=== PATIENT | female | born 1990 | race American Indian/Alaskan Native ===

== ENCOUNTER 2019-04-28 02:33 | Emergency (ER) | payer SELFPAY ==
[2019-04-28] MEDS ORDERED: levETIRAcetam 500 MG TAB PO ONE (02:45)
--- NOTE | 2019-04-28 03:07 | Emergency Department Report ---
ED General Adult HPI - General Chief complaint: Seizure Stated complaint: Seizure Time Seen by Provider: 04/28/19 02:46 Source: EMS Mode of arrival: Stretcher Limitations: No Limitations - History of Present Illness Initial comments: 28 y.o. female with past medical history of seizures presents with a complaint that patient had a seizure tonight. Patient has had urinary incontinence. Patient was biting the tongue. Patient states that she hit her head. Patient's family member stated seizure lasted 6 minutes but according to EMS patient had a postictal period that was very brief and patient was oriented to person place and time upon their arrival. Patient is a last seizure was 2 weeks ago. Patient that she has been noncompliant with her Keppra as well as her Depakote therapy. Severity scale (0 -10): 0 - Related Data Previous Rx's Medication Instructions Recorded Last Taken Type levETIRAcetam [Keppra] 750 mg PO BID #60 udc 04/28/19 Unknown Rx Allergies Allergy/AdvReac Type Severity Reaction Status Date / Time NSAIDS (Non-Steroidal Allergy Unknown Verified 04/28/19 02:44 Anti-Inflamma ED Review of Systems ROS: Stated complaint: Seizure Other details as noted in HPI Constitutional: denies: chills, fever Eyes: denies: eye pain, eye discharge, vision change ENT: denies: ear pain, throat pain Respiratory: denies: cough, shortness of breath, wheezing Cardiovascular: denies: chest pain, palpitations Endocrine: no symptoms reported Gastrointestinal: denies: abdominal pain, nausea, diarrhea Genitourinary: denies: urgency, dysuria, discharge Musculoskeletal: denies: back pain, joint swelling, arthralgia Skin: denies: rash, lesions Neurological: other (seizure) Psychiatric: denies: anxiety, depression Hematological/Lymphatic: denies: easy bleeding, easy bruising ED Past Medical Hx - Medications Home Medications: Home Medications Medication Instructions Recorded Confirmed Last Taken Type levETIRAcetam [Keppra] 750 mg PO BID #60 udc 04/28/19 Unknown Rx ED Physical Exam - General Limitations: No Limitations General appearance: alert, in no apparent distress, other - Head Head exam: Present: normocephalic, other (Small contusion noted in the left frontal region. No evidence of scalp laceration or hematoma.) - Eye Eye exam: Present: normal appearance - ENT ENT exam: Present: mucous membranes moist - Neck Neck exam: Present: normal inspection - Respiratory Respiratory exam: Present: normal lung sounds bilaterally. Absent: respiratory distress - Cardiovascular Cardiovascular Exam: Present: regular rate, normal rhythm. Absent: systolic murmur, diastolic murmur, rubs, gallop - GI/Abdominal GI/Abdominal exam: Present: soft, normal bowel sounds - Extremities Exam Extremities exam: Present: normal inspection - Back Exam Back exam: Present: normal inspection - Neurological Exam Neurological exam: Present: alert, oriented X3 - Psychiatric Psychiatric exam: Present: normal affect, normal mood - Skin Skin exam: Present: warm, dry, intact, normal color. Absent: rash ED Course Vital Signs 04/28/19 02:42 Pulse Rate 90 Respiratory 16 Rate Blood Pressure 151/93 [Right] O2 Sat by Pulse 97 Oximetry ED Medical Decision Making - Lab Data Result diagrams: 04/28/19 03:36 04/28/19 03:36 - Medical Decision Making Patient has had no subsequent seizures while here in emergency department. CT shows no acute pathology. Patient to be given Keppra on outpatient basis and be discharged. - Differential Diagnosis Seizure; Dehydration; Electrolyte Abnormality; Anemia Critical care attestation.: If time is entered above; I have spent that time in minutes in the direct care of this critically ill patient, excluding procedure time. ED Disposition Clinical Impression: Seizure Disposition: DC-01 TO HOME OR SELFCARE Is pt being admited?: No Does the pt Need Aspirin: No Condition: Stable Instructions: Epilepsy (ED) Prescriptions: levETIRAcetam [Keppra] 750 mg PO BID #60 c Time of Disposition: 05:14 Print Language: MONTENEGRIN
--- NOTE | 2019-04-28 03:36 | Cat Scan Report ---
CT head/brain wo con INDICATION: MAIN: seizures, fall, headache. TECHNIQUE: All CT scans at this location are performed using CT dose reduction for ALARA by means of automated e xposure control. COMPARISON: 04/20/2019 FINDINGS: Ventricles are symmetrical and normal in size. No mass, hemorrhage or other significant abnormality. IMPRESSION: 1. No acute abnormality and no interval change from 7 days ago. Signer Name: Jose Alejandro Castillo MD Signed: 04/28/2019 3:31 AM Workstation Name: [id number]
[2019-04-28 03:56] LABS: Basophils % (Auto) 0.4 % (0.0-1.8); Eosinophils # (Auto) 0.1 K/mm3 (0.0-0.4); Eosinophils % (Auto) 1.3 % (0.0-4.3); Hematocrit 35.6 % (30.3-42.9); Hemoglobin 11.5 gm/dl (10.1-14.3); Lymphocytes # (Auto) 1.9 K/mm3 (1.2-5.4); Lymphocytes % (Auto) 22.9 % (13.4-35.0); Mean Corpuscular HGB Conc 32 % (30-34); Mean Corpuscular Volume 87 fl (79-97); Monocytes # (Auto) 0.8 K/mm3 (0.0-0.8); Monocytes % (Auto) 9.9 % (0.0-7.3); Platelet Count 353 K/mm3 (140-440); Red Cell Distribution Width 18.4 % (13.2-15.2)
[2019-04-28 04:19] LABS: Alanine Aminotransferase 7 units/L (7-56); Albumin 3.9 g/dL (3.9-5); BUN/Creatinine Ratio 20; Blood Urea Nitrogen 12 mg/dL (7-17); Calcium 9.3 mg/dL (8.4-10.2); Hemolysis Index 76
[2019-04-28 05:19] VITALS: BP 102/47
== END 2019-04-28 05:56 | disposition home or self-care (01) ==
LOC: ED 02:33
DX: G40.909 Epilepsy, unspecified, not intractable, without status epilepticus (principal); Z79.899 Other long term (current) drug therapy; Z88.6 Allergy status to analgesic agent
CPT/HCPCS: 36415; 70450; 80053; 80320; 85025; G0480

== ENCOUNTER 2019-04-28 09:15 | Emergency (ER) | payer SELFPAY ==
--- NOTE | 2019-04-28 09:57 | Emergency Department Report ---
ED Psych HPI - General Chief Complaint: Medical Clearance Stated Complaint: MH Time Seen by Provider: 04/28/19 09:42 Source: patient Mode of arrival: Stretcher - History of Present Illness Initial Comments: This is a 28-year-old female that arrives with a variety of issues. Apparently she has some delusions related to the coronavirus which she expressed triage. She was brought in by [facility] from her residence at [place]. She admits to being noncompliant with her psychiatric medicine to include [place]. She states that she was recently admitted to [facility]. She states that she was sent to [place] from [facility]. She is expressing active suicidal ideat ion although has no specific plan. She states that she is a "cutter". She also states that she has taken an overdose in the past. She expresses a desire to be admitted to a psychiatric facility. Complaint: feels depressed, other (Delusional) -: week(s), unknown Associated Psychiatric Symptoms: depression History of same: Yes Quality: constant Improves With: none Worsens With: none Context: not taking psychiatric Associated Symptoms: denies other symptoms Treatments Prior to Arrival: none - Related Data Previous Rx's Medication Instructions Recorded Last Taken Type levETIRAcetam [Keppra] 750 mg PO BID #60 [facility] [place] 04/28/19 Unknown Rx Allergies Allergy/AdvReac Type Severity Reaction Status Date / Time NSAIDS (Non-Steroidal Allergy Unknown Verified 04/28/19 02:44 Anti-Inflamma ED Review of Systems ROS: Stated complaint: MH Other details as noted in HPI Constitutional: denies: chills, fever Eyes: denies: eye pain, eye discharge, vision change ENT: denies: ear pain, throat pain Respiratory: denies: cough, shortness of breath, wheezing Cardiovascular: denies: chest pain, palpitations Endocrine: no symptoms reported Gastrointestinal: denies: abdominal pain, nausea, diarrhea Genitourinary: denies: urgency, dysuria, discharge Musculoskeletal: denies: back pain, joint swelling, arthralgia Skin: denies: rash, lesions Neurological: denies: headache, weakness, paresthesias Psychiatric: as per HPI, anxiety, depression, other Hematological/Lymphatic: denies: easy bleeding, easy bruising ED Past Medical Hx - Past Medical History Hx Psychiatric Treatment: Yes - Social History Other Social History: Resides at [place]. - Medications Home Medications: Home Medications Medication Instructions Recorded Confirmed Last Taken Type levETIRAcetam [Keppra] 750 mg PO BID #60 [facility] [place] 04/28/19 Unknown Rx ED Physical Exam - General Limitations: No Limitations General appearance: alert, in no apparent distress - Head Head exam: Present: atraumatic, normocephalic - Eye Eye exam: Present: normal appearance. Absent: scleral icterus - ENT ENT exam: Present: mucous membranes moist - Neck Neck exam: Present: normal inspection - Respiratory Respiratory exam: Present: normal lung sounds bilaterally. Absent: respiratory distress - Cardiovascular Cardiovascular Exam: Present: regular rate, normal rhythm. Absent: systolic murmur, diastolic murmur, rubs, gallop - GI/Abdominal GI/Abdominal exam: Present: soft, normal bowel sounds. Absent: distended, tenderness, guarding, rebound - Extremities Exam Extremities exam: Present: normal inspection - Back Exam Back exam: Present: normal inspection - Neurological Exam Neurological exam: Present: alert, oriented X3, CN II-XII intact. Absent: motor sensory deficit - Psychiatric Psychiatric exam: Present: normal affect, depressed - Skin Skin exam: Present: warm, dry, intact, normal color. Absent: rash ED Course Vital Signs 04/28/19 10:58 Temperature 98.1 F Pulse Rate 82 Respiratory 18 Rate Blood Pressure 143/59 [Right] O2 Sat by Pulse 100 Oximetry - Reevaluation(s) Reevaluation #1: Patient displayed "head banging" behavior according to nursing staff. She did not injure herself. She was given Geodon. I have already instructed the nurse to get her medication reconciled so we can continue it. 1013 form has been executed. 04/28/19 11:57 ED Medical Decision Making - Lab Data Result diagrams: 04/28/19 09:58 Laboratory Results - last 24 hr 04/28/19 09:58 Sodium 143 Potassium 5.0 Chloride 106.8 Carbon Dioxide 20 L Anion Gap 21 BUN 12 Creatinine 0.5 L Estimated GFR > 60 BUN/Creatinine Ratio 24 Glucose 72 Calcium 9.9 Magnesium 2.50 H Total Bilirubin 0.20 ALT 10 Alkaline Phosphatase 63 Total Creatine Kinase 157 H CK-MB (CK-2) 1.8 CK-MB (CK-2) Rel Index 1.1 Total Protein 7.9 Albumin 4.5 Albumin/Globulin Ratio 1.3 Critical care attestation.: If time is entered above; I have spent that time in minutes in the direct care of this critically ill patient, excluding procedure time. ED Disposition Clinical Impression: Psychiatric disorder, Suicidal ideation Disposition: DC-01 TO HOME OR SELFCARE Is pt being admited?: No Does the pt Need Aspirin: No Condition: Stable Referrals: PRIMARY CARE, [Primary Care Provider] - 3-5 Days Time of Disposition: 12:09
[2019-04-28] MEDS: ZIPRASIDONE MESYLATE 20 MG VIAL IM ONE ×2 (11:57→12:57)
[2019-04-28 12:05] LABS: Creatine Kinase MB 1.8 ng/mL (0.0-4.0)
[2019-04-28 12:07] LABS: Alanine Aminotransferase 10 units/L (7-56); Albumin 4.5 g/dL (3.9-5); BUN/Creatinine Ratio 24; Blood Urea Nitrogen 12 mg/dL (7-17); Calcium 9.9 mg/dL (8.4-10.2); Hemolysis Index 83
[2019-04-28 12:15] LABS: Bilirubin,Direct < 0.2 mg/dL (0-0.2)
[2019-04-28 13:12] LABS: Amphetamine Screen,Urine PRESUMPTIVE NEGATIVE; Benzodiazepines Screen,Urine PRESUMPTIVE NEGATIVE; Cannabinoid Screen,Urine PRESUMPTIVE NEGATIVE; Cocaine Screen,Urine PRESUMPTIVE NEGATIVE; Methadone Screen,Urine PRESUMPTIVE NEGATIVE; Opiate Screen,Urine PRESUMPTIVE NEGATIVE
[2019-04-28 13:15] LABS: Bilirubin,Urine NEG (Negative); Blood,Urine SM (Negative); Color,Urine Yellow (Yellow); Mucus,Urine FEW /HPF; Protein,Urine <15 mg/dL mg/dL (Negative); Urobilinogen,Urine < 2.0 mg/dL (<2.0)
[2019-04-28 18:10] LABS: Basophils # (Auto) 0.1 K/mm3 (0.0-0.1); Basophils % (Auto) 0.7 % (0.0-1.8); Eosinophils # (Auto) 0.1 K/mm3 (0.0-0.4); Eosinophils % (Auto) 1.8 % (0.0-4.3); Hematocrit 37.7 % (30.3-42.9); Hemoglobin 11.9 gm/dl (10.1-14.3); Lymphocytes # (Auto) 3.5 K/mm3 (1.2-5.4); Lymphocytes % (Auto) 44.8 % (13.4-35.0); Mean Corpuscular HGB Conc 32 % (30-34); Mean Corpuscular Volume 86 fl (79-97); Monocytes # (Auto) 0.9 K/mm3 (0.0-0.8); Monocytes % (Auto) 11.9 % (0.0-7.3); Platelet Count 332 K/mm3 (140-440); Red Blood Count 4.39 M/mm3 (3.65-5.03); Red Cell Distribution Width 18.7 % (13.2-15.2)
[2019-04-28] MEDS ORDERED: LORazepam 2 MG/ML VIAL ONE (22:18)
[2019-04-28] MEDS ORDERED: LORazepam 2 MG/ML VIAL IM ONE (22:23)
[2019-04-29 00:19] LABS: HCG Qualitative,Urine Negative (Negative)
[2019-04-29] MEDS ORDERED: levETIRAcetam 500 MG TAB PO ONE (01:25)
--- NOTE | 2019-04-29 10:19 | Consultation ---
History of Present Illness - Reason for Consult Consult date: 04/29/19 Reason for consult: Psychiatric assessment - History of Present Psychiatric Illness Ms. Gomez is a 28-year-old -Chinese female, the patient was noted in her room, she appears sad, patient is disheveled with a flat affect. The patient is alert oriented x3 able to make her needs known. The patient maintains intermittent eye contact. When asked why she was here the patient stated, "I am having suicidal thoughts and my plan is to jump off a building or shoot myself". The patient reports that she does have a history of depression and bipolar and has not been taking her medication for over a year. The patient denies homicidal ideation and contracts for safety. The patient reports that she is hearing voices not this morning but yesterday telling her to cut her wrists. The patient denies visual hallucinations. The patient reports that she is eating and sleeping well. She reports severe depressive symptoms with a score of 10 out of 10, she reports that she sleeps a lot, has not been taking care of herself, and cries a lot. The patient is requesting to be placed in a psychiatric facility to get the help that she needs. Will restart patient's home medications. PAST PSYCHIATRIC HISTORY: Diagnoses: Depression/bipolar Suicide attempts or Self-harm behavior yes Prior psychiatric hospitalizations yes Substance Abuse history: Denies Previous psychiatric medications tried: Risperdal, Zoloft, Remeron, Depakote Outpatient treatment: Denies PAST MEDICAL HISTORY: Seizures Family Psychiatric History None reported or documented SOCIAL HISTORY Marital Status: Single Living Arrangements: Sister Employment Status: Unemployed Access to guns/weapons: Denies Education: College History of Abuse: Denies Legal History: Denies ROS: Constitutional: Negative for weight loss ENT: Negative for stridor Respiratory: Negative for cough or hemoptysis All other systems reviewed and are negative MENTAL STATUS General Appearance and Behavior: age appropriate, poor eye contact, cooperative with questioning and polite Cooperation: Cooperative Psychomotor Behavior: within normal limits Mood: sad Affect and affective range: Congruent with stated mood Thought Process: Fluent/Logical and Goal-directed Thought Content: Suicidal Speech: Normal volume and Regular rate and rhythm Intellectual Functioning Average Suicidal Ideation: yes Homicidal Ideation: Denies HI Impulse Control: intact Insight and Judgment: poor Memory: Normal Attention: Normal Orientation: alert and orientedx3 RECOMMENDATIONS MEDICATIONS: Start Remeron 15 mg p.o. nightly Start Risperdal 0.5 mg p.o. twice daily start Start Cogentin 0.5 mg p.o. twice daily Start Depakote 225 mg p.o. twice daily Risks, benefits and alternatives of medications discussed with the patient, questions answered and consent obtained from patient. PSYCHOTHERAPY: Supportive psychotherapy provided MEDICAL: Per primary team DELIRIUM PRECAUTIONS: Please re-orient patient frequently, keep lights on during the day, and minimize benzodiazepines and opiates as these medications could worsen patient's confusion. OPTIONS ADVISOR: DISPOSITION: indication for acute inpatient psychiatric hospitalization at this time, patient is suicidal LEGAL STATUS: 1013 FOLLOW-UP: Will follow Medications and Allergies Allergies Allergy/AdvReac Type Severity Reaction Status Date / Time NSAIDS (Non-Steroidal Allergy Unknown Verified 04/28/19 02:44 Anti-Inflamma Home Medications Medication Instructions Recorded Confirmed Last Taken Type Apixaban [Eliquis] 5 mg PO DAILY 04/28/19 04/28/19 04/27/19 History Ferrous Sulfate [Feosol 325 MG tab] 325 mg PO DAILY 04/28/19 04/28/19 04/27/19 History Folic Acid 1 mg PO DAILY 04/28/19 04/28/19 04/27/19 History OLANZapine [Zyprexa] 20 mg PO DAILY 04/28/19 04/28/19 04/27/19 History Olanzapine mg PO BID 04/28/19 04/28/19 Unknown History Sertraline [Zoloft] 100 mg PO BID 04/28/19 04/28/19 04/27/19 History lamoTRIgine [LaMICtal] 25 mg PO DAILY 04/28/19 04/28/19 04/27/19 History levETIRAcetam [Keppra] 750 mg PO BID #60 udc 04/28/19 04/28/19 04/27/19 Rx metFORMIN [Glucophage] 500 mg PO ONCE 04/28/19 04/28/19 04/27/19 History Mental Status Exam - Vital signs Last Vital Signs Temp 97.2 F L 04/29/19 07:58 Pulse 90 04/29/19 07:58 Resp 20 04/29/19 01:00 BP 129/83 04/29/19 07:58 Pulse Ox 97 03/15/20 07:58 Results Result Diagrams: 04/28/19 09:58 04/28/19 09:58 Abnormal lab results 04/28/19 04/28/19 04/28/19 Range/Units 09:58 09:58 09:58 MCH 27 L (28-32) pg RDW 18.7 H (13.2-15.2) % Lymph % (Auto) 44.8 H (13.4-35.0) % [place] % (Auto) 11.9 H (0.0-7.3) % [place] # 0.9 H (0.0-0.8) K/mm3 Carbon Dioxide 20 L (22-30) mmol/L Creatinine 0.5 L (0.7-1.2) mg/dL Magnesium 2.50 H (1.7-2.3) mg/dL Total Creatine Kinase 157 H (30-135) units/L Salicylates < 0.3 L (2.8-20.0) mg/dL Acetaminophen (10.0-30.0) ug/mL 04/28/19 Range/Units 09:58 MCH (28-32) pg RDW (13.2-15.2) % Lymph % (Auto) (13.4-35.0) % [place] % (Auto) (0.0-7.3) % [place] # (0.0-0.8) K/mm3 Carbon Dioxide (22-30) mmol/L Creatinine (0.7-1.2) mg/dL Magnesium (1.7-2.3) mg/dL Total Creatine Kinase (30-135) units/L Salicylates (2.8-20.0) mg/dL Acetaminophen < 5.0 L (10.0-30.0) ug/mL All other labs normal.
[2019-04-29] MEDS ORDERED: WATER FOR INJ Sterile (PF) 10 ML ONE (16:55)
[2019-04-29] MEDS ORDERED: ZIPRASIDONE MESYLATE 20 MG VIAL IM ONE ×2 (16:55→17:04)
[2019-04-29] MEDS: risperiDONE 0.25 MG TAB PO SCH (22:10)
[2019-04-29] MEDS: MIRTAZAPINE 15 MG TAB PO SCH (22:10)
[2019-04-29] MEDS: SERTRALINE 100 MG TAB PO SCH (22:10)
[2019-04-29] MEDS: DIVALPROEX DR 125 MG TAB PO SCH (22:10)
[2019-04-29] MEDS: BENZTROPINE 0.5 MG TAB PO SCH (22:10)
[2019-04-30] MEDS ORDERED: SERTRALINE 50 MG TAB ONE (10:42)
[2019-04-30] MEDS: risperiDONE 0.25 MG TAB PO SCH ×2 (10:58→22:56)
[2019-04-30] MEDS: SERTRALINE 100 MG TAB PO SCH ×2 (10:58→22:56)
[2019-04-30] MEDS: BENZTROPINE 0.5 MG TAB PO SCH ×2 (10:59→22:55)
[2019-04-30] MEDS: DIVALPROEX DR 125 MG TAB PO SCH ×2 (10:59→22:55)
--- NOTE | 2019-04-30 13:02 | Progress Note ---
Subjective Date of service: 04/30/19 Principal diagnosis: Psychiatric assessment Subjective Comment: Ms. Gomez is in her room alert oriented x3, she appears disheveled, she appears her age patient appears irritable and sad. The patient stated that she is still suicidal, per chart patient was noted banging her forehead on the wall and contract for safety. When asked why she is banging her head the patient stated, "I have nothing to live for". The patient was reassured that we are here to keep her safe, the patient then stated, "when I am sad I try to sing"., the patient was encouraged to sing whenever she get to the point of hurting herself. The patient denies homicidal ideations. The patient reports that she does hear voices telling her to cut her wrist, she denies visual hallucinations. The patient report that she still remains depressed with a score of 7 out of 10. The patient reported that she slept better last night and she is eating well. ROS: Constitutional: Negative for weight loss ENT: Negative for stridor Respiratory: Negative for cough or hemoptysis All other systems reviewed and are negative MENTAL STATUS General Appearance and Behavior: age appropriate, poor eye contact, cooperative with questioning and polite Cooperation: Cooperative Psychomotor Behavior: within normal limits Mood: sad Affect and affective range: Congruent with stated mood Thought Process: Fluent/Logical and Goal-directed Thought Content: Suicidal Speech: Normal volume and Regular rate and rhythm Intellectual Functioning Average Suicidal Ideation: yes Homicidal Ideation: Denies HI Impulse Control: intact Insight and Judgment: poor Memory: Normal Attention: Normal Orientation: alert and orientedx3 RECOMMENDATIONS MEDICATIONS: Continue medications on chart Risks, benefits and alternatives of medications discussed with the patient, questions answered and consent obtained from patient. PSYCHOTHERAPY: Supportive psychotherapy provided MEDICAL: Per primary team DELIRIUM PRECAUTIONS: Please re-orient patient frequently, keep lights on during the day, and minimize benzodiazepines and opiates as these medications could worsen patient's confusion. SENIOR EXECUTIVE ASSISTANT: DISPOSITION: indication for acute inpatient psychiatric hospitalization at this time, patient is suicidal LEGAL STATUS: 1013 FOLLOW-UP: Will follow Medications and Allergies Allergies Allergy/AdvReac Type Severity Reaction Status Date / Time NSAIDS (Non-Steroidal Allergy Unknown Verified 04/28/19 02:44 Anti-Inflamma Home Medications Medication Instructions Recorded Confirmed Last Taken Type Apixaban [Eliquis] 5 mg PO DAILY 04/28/19 04/28/19 04/27/19 History Ferrous Sulfate [Feosol 325 MG tab] 325 mg PO DAILY 04/28/19 04/28/19 04/27/19 History Folic Acid 1 mg PO DAILY 04/28/19 04/28/19 04/27/19 History OLANZapine [Zyprexa] 20 mg PO DAILY 04/28/19 04/28/19 04/27/19 History Olanzapine mg PO BID 04/28/19 04/28/19 Unknown History Sertraline [Zoloft] 100 mg PO BID 04/28/19 04/28/19 04/27/19 History lamoTRIgine [LaMICtal] 25 mg PO DAILY 04/28/19 04/28/19 04/27/19 History levETIRAcetam [Keppra] 750 mg PO BID #60 udc 04/28/19 04/28/19 04/27/19 Rx metFORMIN [Glucophage] 500 mg PO ONCE 04/28/19 04/28/19 04/27/19 History Active Meds: Active Medications Benztropine Mesylate (Cogentin) 0.5 mg PO BID [facility] Last Admin: 04/30/19 10:59 Dose: 0.5 mg Documented by: Divalproex Sodium (Depakote Dr) 125 mg PO BID [facility] Last Admin: 04/30/19 10:59 Dose: 125 mg Documented by: Mirtazapine (Remeron) 15 mg PO QHS [facility] Last Admin: 04/29/19 22:10 Dose: 15 mg Documented by: Risperidone (Risperdal) 0.5 mg PO BID [facility] Last Admin: 04/30/19 10:58 Dose: 0.5 mg Documented by: Sertraline HCl (Zoloft) 100 mg PO BID [facility] Last Admin: 04/30/19 10:58 Dose: 100 mg Documented by: Results - Results Labs/Vitals: Laboratory Last Values WBC 7.8 K/mm3 (4.5-11.0) 04/28/19 09:58 RBC 4.39 M/mm3 (3.65-5.03) 04/28/19 09:58 Hgb 11.9 gm/dl (10.1-14.3) 04/28/19 09:58 Hct 37.7 % (30.3-42.9) 04/28/19 09:58 MCV 86 fl (79-97) 04/28/19 09:58 MCH 27 pg (28-32) L 04/28/19 09:58 MCHC 32 % (30-34) 04/28/19 09:58 RDW 18.7 % (13.2-15.2) H 04/28/19 09:58 Plt Count 332 K/mm3 (140-440) 04/28/19 09:58 Lymph % (Auto) 44.8 % (13.4-35.0) H 04/28/19 09:58 [place] % (Auto) 11.9 % (0.0-7.3) H 04/28/19 09:58 Eos % (Auto) 1.8 % (0.0-4.3) 04/28/19 09:58 Baso % (Auto) 0.7 % (0.0-1.8) 04/28/19 09:58 Lymph # 3.5 K/mm3 (1.2-5.4) 04/28/19 09:58 [place] # 0.9 K/mm3 (0.0-0.8) H 04/28/19 09:58 Eos # 0.1 K/mm3 (0.0-0.4) 04/28/19 09:58 Baso # 0.1 K/mm3 (0.0-0.1) 04/28/19 09:58 Seg Neutrophils % 40.8 % (40.0-70.0) 04/28/19 09:58 Seg Neutrophils # 3.2 K/mm3 (1.8-7.7) 04/28/19 09:58 Sodium 143 mmol/L (137-145) 04/28/19 09:58 Potassium 5.0 mmol/L (3.6-5.0) 04/28/19 09:58 Chloride 106.8 mmol/L (98-107) 04/28/19 09:58 Carbon Dioxide 20 mmol/L (22-30) L 04/28/19 09:58 Anion Gap 21 mmol/L 04/28/19 09:58 BUN 12 mg/dL (7-17) 04/28/19 09:58 Creatinine 0.5 mg/dL (0.7-1.2) L 04/28/19 09:58 Estimated GFR > 60 ml/min 04/28/19 09:58 BUN/Creatinine Ratio 24 % 04/28/19 09:58 Glucose 72 mg/dL (65-100) 04/28/19 09:58 POC Glucose 90 (70-105) 04/29/19 12:36 Calcium 9.9 mg/dL (8.4-10.2) 04/28/19 09:58 Magnesium 2.50 mg/dL (1.7-2.3) H 04/28/19 09:58 Total Bilirubin 0.20 mg/dL (0.1-1.2) 04/28/19 09:58 Direct Bilirubin < 0.2 mg/dL (0-0.2) 04/28/19 09:58 AST 21 units/L (5-40) 04/28/19 09:58 ALT 10 units/L (7-56) 04/28/19 09:58 Alkaline Phosphatase 63 units/L (35-129) 04/28/19 09:58 Total Creatine Kinase 157 units/L (30-135) H 04/28/19 09:58 CK-MB (CK-2) 1.8 ng/mL (0.0-4.0) 04/28/19 09:58 CK-MB (CK-2) Rel Index 1.1 (0-4) 04/28/19 09:58 Total Protein 7.9 g/dL (6.3-8.2) 04/28/19 09:58 Albumin 4.5 g/dL (3.9-5) 04/28/19 09:58 Albumin/Globulin Ratio 1.3 % 04/28/19 09:58 Urine Color Yellow (Yellow) 04/28/19 Unknown Urine Turbidity Clear (Clear) 04/28/19 Unknown Urine pH 5.0 (5.0-7.0) 04/28/19 Unknown Ur Specific [place] 1.019 (1.003-1.030) 04/28/19 Unknown Urine Protein <15 mg/dl mg/dL (Negative) 04/28/19 Unknown Urine Glucose (UA) Neg mg/dL (Negative) 04/28/19 Unknown Urine Ketones Neg mg/dL (Negative) 04/28/19 Unknown Urine Blood Sm (Negative) 04/28/19 Unknown Urine Nitrite Neg (Negative) 04/28/19 Unknown Urine Bilirubin Neg (Negative) 04/28/19 Unknown Urine Urobilinogen < 2.0 mg/dL (<2.0) 04/28/19 Unknown Ur Leukocyte Esterase Neg (Negative) 04/28/19 Unknown Urine WBC (Auto) 1.0 /HPF (0.0-6.0) 04/28/19 Unknown Urine RBC (Auto) 2.0 /HPF (0.0-6.0) 04/28/19 Unknown U Epithel Cells (Auto) 1.0 /HPF (0-13.0) 04/28/19 Unknown Urine Mucus Few /HPF 04/28/19 Unknown Urine HCG, Qual Negative (Negative) 04/28/19 23:22 Salicylates < 0.3 mg/dL (2.8-20.0) L 04/28/19 09:58 Urine Opiates Screen Presumptive negative 04/28/19 Unknown Urine Methadone Screen Presumptive negative 04/28/19 Unknown Acetaminophen < 5.0 ug/mL (10.0-30.0) L 04/28/19 09:58 Ur Barbiturates Screen Presumptive negative 04/28/19 Unknown Ur Phencyclidine Scrn Presumptive negative 04/28/19 Unknown Ur Amphetamines Screen Presumptive negative 04/28/19 Unknown U Benzodiazepines Scrn Presumptive negative 04/28/19 Unknown Urine Cocaine Screen Presumptive negative 04/28/19 Unknown U Marijuana (THC) Screen Presumptive negative 04/28/19 Unknown Drugs of Abuse Note Disclamer 04/28/19 Unknown Last Vital Signs Temp 97.8 F 04/30/19 08:11 Pulse 78 04/30/19 08:11 Resp 18 04/30/19 08:11 BP 142/89 04/30/19 08:11 Pulse Ox 100 04/30/19 08:11
[2019-04-30] MEDS ORDERED: LORazepam 2 MG/ML VIAL ONE (21:14)
[2019-04-30] MEDS ORDERED: LORazepam 2 MG/ML VIAL IM ONE (21:19)
[2019-04-30] MEDS: MIRTAZAPINE 15 MG TAB PO SCH (22:56)
[2019-05-01] MEDS ORDERED: LORazepam 2 MG/ML VIAL ONE (00:26)
[2019-05-01] MEDS ORDERED: LORazepam 2 MG/ML VIAL IM ONE (00:28)
[2019-05-01 07:44] VITALS: BP 138/89
[2019-05-01] MEDS: risperiDONE 0.25 MG TAB PO SCH (10:48)
[2019-05-01] MEDS: BENZTROPINE 0.5 MG TAB PO SCH (10:49)
[2019-05-01] MEDS: SERTRALINE 100 MG TAB PO SCH (10:49)
[2019-05-01] MEDS: DIVALPROEX DR 125 MG TAB PO SCH (10:49)
--- NOTE | 2019-05-01 10:50 | Progress Note ---
Subjective - Reason for Consult Consult date: 05/01/19 Reason for consult: SI, hallucinations - Chief Complaint Chief complaint: During my interview today, the patient was lying down. Awake. A/ox 3. She makes good eye contact. She is calm and cooperative. The patient says she's here "because I'm having suicidal thoughts." She denies a plan at present, but states, "I told my sister and her I thought about getting her gun and shooting myself." She states, "I'm at my last end." The patient also verbalizes auditory and visual hallucinations. She says "the voices keep telling me to cut." She says she sees "a lady with holes in her face." She says she's been off her psych meds for "a year." She states, she's "depressed and just tired." The patient says "I've been going through so much with losing my momma and my daddy." The patient says she "slept okay" and her appetite is "okay." ROS Constitutional: Negative for weight loss ENT: Negative for stridor Respiratory: Negative for cough or hemoptysis All other systems reviewed and are negative MENTAL STATUS General Appearance: Dressed appropriately Behavior: Calm and cooperative Mood: Depressed Affect: Congruent with stated mood Thought Process: Logical and Goal-directed Speech: Normal volume and Regular rate and rhythm Thought Content Suicidal Ideation: Yes Homicidal Ideation: Denies Hallucinations: A/V Delusions: None elicited Insight/Judgment: Limited Memory/Cognition: Normal ASSESSMENT: Major Depression, Severe w/Psychotic Features RECOMMENDATIONS MEDICATIONS: Increased Risperidone 1mg po daily to decrease psychosis and improve mood Risks, benefits and alternatives of medications discussed with the patient, questions answered and consent obtained from patient. PSYCHOTHERAPY: Supportive psychotherapy provided MEDICAL: Per primary team DELIRIUM PRECAUTIONS: Please re-orient patient frequently, keep lights on during the day, and minimize benzodiazepines and opiates as these medications could worsen patient's confusion. SQL SSIS DEVELOPER: Defer to primary DISPOSITION: The patient meets the requirement for acute inpatient psychiatric hospitalization at this time. The patient may transfer to an acute psychiatric facility once medically cleared. LEGAL STATUS: 1013 Will follow until the patient is transferred or stabilizes enough for discharge. Please call with any questions or concerns. Thank you for this consult. Mental Status Exam - Vital signs Last Vital Signs Temp 98.0 F 05/01/19 07:43 Pulse 83 05/01/19 07:43 Resp 20 05/01/19 07:43 BP 138/89 05/01/19 07:43 Pulse Ox 98 05/01/19 07:43
[2019-05-01] MEDS ORDERED: risperiDONE 0.25 MG TAB PO SCH (11:00)
[2019-05-01] MEDS ORDERED: risperiDONE 1 MG TAB PO SCH (12:00)
== END 2019-05-01 15:35 | disposition home or self-care (01) ==
LOC: EEVIPCON 09:15 → ED 09:15
DX: F32.9 Major depressive disorder, single episode, unspecified (principal); Z88.8 Allergy status to other drugs, medicaments and biological substances
CPT/HCPCS: 36415; 80048; 80076; 80307; 81001; 81025; 82550; 82553; 82962; 83735; 85025; 96372; 99285; J2060; J3486; 80320; G0480